=== PATIENT | male | born 1970 | race Caucasian/White ===

== ENCOUNTER 2017-09-29 05:51 | Day surgery (SDC) | payer OTHER ==
[~2017-09-29] VITALS: Ht 170.2 cm; Wt 109.5 kg
[~2017-09-29 05:51] MED LIST: EXEN2PEN SQ; METF500T4 PO; RINGERS SOLUTION,LACTATED 1,000 ML IV ONE
[2017-09-29] MEDS ORDERED: FentaNYL CITRATE-PF 100 MCG/2 ML VIAL IVP ONE (05:52)
[2017-09-29] MEDS ORDERED: MIDAZOLAM HCL 2 MG/2 ML VIAL IVP ONE (05:52)
[2017-09-29] MEDS ORDERED: RINGERS SOLUTION,LACTATED 1,000 ML IV ONE (06:00)
[2017-09-29 06:47] LABS: GLUCOMETER DEV NAME(LOC) SDS 5; GLUCOSE,POINT OF CARE 104 MG/DL (70-110)
[2017-09-29] MEDS ORDERED: LIDOCAINE HCL 1%/EPI 1:200,000/PF 10 ML VIAL ONE (06:53)
[2017-09-29] MEDS ORDERED: IOHEXOL 240 MG/ML 20 ML VIAL ONE (06:53)
[2017-09-29] MEDS ORDERED: BUPIVACAINE HCL/PF 0.5% 30 ML VIAL ONE (06:54)
[2017-09-29] MEDS ORDERED: SODIUM CL IRRIG SOLN BAG 0 ML IRRIG ONE (06:54)
[2017-09-29] MEDS ORDERED: LIDOCAINE HCL 2%/EPI 1:200,000/PF 20 ML VIAL ONE (06:57)
[2017-09-29] MEDS ORDERED: CefoTEtan DISOD 1 GM/DEXTROSE 50 ML IV ONE (07:30)
[2017-09-29] MEDS ORDERED: HYDROCODONE/ACETAMINOPHEN 5-325 MG TABLET PO PRN ×2 (09:30)
[2017-09-29] MEDS ORDERED: IBUPROFEN 600 MG TABLET PO PRN ×2 (09:30)
[2017-09-29] MEDS ORDERED: ACETAMINOPHEN 500 MG TABLET PO PRN ×2 (09:30)
[2017-09-29] MEDS ORDERED: MEPERIDINE-PF 25 MG/ML SYRINGE IVP PRN (09:45)
[2017-09-29] MEDS ORDERED: ONDANSETRON HCL 4 MG/2 ML VIAL IVP PRN (09:45)
[2017-09-29] MEDS ORDERED: FentaNYL CITRATE-PF 100 MCG/2 ML VIAL IVP PRN (09:45)
[2017-09-29] MEDS ORDERED: HYDROmorphone 2 MG/ML SYRINGE ONE (09:57)
[2017-09-29] MEDS ORDERED: MEPERIDINE-PF 50 MG/ML SYRINGE ONE (09:57)
[2017-09-29] MEDS: HYDROmorphone 2 MG/ML SYRINGE IVP PRN ×2 (10:05→10:15)
== END 2017-09-29 11:25 | disposition home or self-care (01) ==
LOC: SURGERY 05:51
PROVIDERS: ATTEND Surgery
DX: K80.10 Calculus of gallbladder with chronic cholecystitis without obstruction (principal); E11.9 Type 2 diabetes mellitus without complications; F12.21 Cannabis dependence, in remission; Z87.891 Personal history of nicotine dependence; Z72.89 Other problems related to lifestyle; Z98.890 Other specified postprocedural states; Z79.84 Long term (current) use of oral hypoglycemic drugs
CPT/HCPCS: 47562; 82962; 88304; J1170; J2175; J2250; J3010; J3490 ×2; J7120; Q9966